=== PATIENT | female | born 1985 | race Caucasian/White ===

== ENCOUNTER 2019-12-28 16:38 | Observation (INO) ==
[2019-12-28] MEDS ORDERED: 0.9 % Sodium Chloride 1,000 ML IVC ONE (17:11)
[2019-12-28 17:53] LABS: Basophils # 0.1 K/mcL (0.0-0.2); Basophils % 1.5 %; Eosinophils # 0.2 K/mcL (0.0-0.6); Eosinophils % 2.5 %; Hematocrit 51.5 % (35.3-44.9); Hemoglobin 17.5 g/dL (11.5-15.4); Immature Granulocytes % 0.6 % (0-4); Lymphocytes # 1.7 K/mcL (0.6-4.6); Lymphocytes % 19.6 %; Mean Corpuscular Hemoglobin 30.4 pg (28.0-33.3); Mean Corpuscular Volume 89.4 fL (83.0-100.0); Mean Platelet Volume 11.6 fL (9.4-12.4); Monocytes # 1.2 K/mcL (0.0-1.3); Monocytes % 13.3 %; Neutrophils # 5.5 K/mcL (1.6-8.9); Platelet Count 303 K/mcL (140-400); Red Blood Count 5.76 M/mcL (3.82-4.97); Red Cell Distribution Width 14.1 % (11.5-14.5); Segmented Neutrophils % 62.5 %; White Blood Count 8.7 K/mcL (4.3-11.1)
[2019-12-28 17:55] LABS: Bilirubin,Urine Large (Negative); Blood,Urine Large (Negative); Clarity,Urine Cloudy (Clear); Color,Urine Orange (Yellow); Glucose,Urine (UA) Normal (Normal); Ketones,Urine Trace mg/dL (Negative); Leukocyte Esterase,Urine Large (Negative); Nitrite,Urine Positive (Negative); Protein,Urine 30 mg/dL (Neg-Trace); Specific Gravity,Urine 1.028 (1.010-1.025); Urobilinogen,Urine Normal (Normal)
[2019-12-28 17:58] LABS: Bacteria,Urine Many per hpf (None-Few); Hyaline Casts,Urine None Seen per lpf (None-Few); Squamous Epithelial Cell,Urine Many per lpf (None-Few); WBC,Urine TNTC per hpf (0-3)
[2019-12-28 18:05] LABS: INR 1.4
[2019-12-28 18:08] LABS: Activated Partial Thrombo Time 34.8 Seconds (26.0-36.0)
[2019-12-28 18:10] LABS: Prothrombin Time 15.9 Seconds (9.4-12.1)
[2019-12-28 18:20] LABS: RBC,Urine 0-3 per hpf (0-3)
[2019-12-28 18:28] LABS: Acetaminophen < 10 mcg/mL (10-20); Alanine Aminotransferase 2662 Units/L (7-52); Albumin 4.1 g/dL (3.5-5.7); Albumin/Globulin Ratio 1.3 (1.1-2.2); Alkaline Phosphatase 202 Units/L (34-104); Aspartate Amino Transferase 1485 Units/L (13-39); BUN/Creatinine Ratio 9 (6-26); Bilirubin,Direct 7.5 mg/dL (0.0-0.2); Bilirubin,Indirect 4.4 mg/dL (0.0-1.0); Bilirubin,Total 11.9 mg/dL (0.3-1.0); Blood Urea Nitrogen 7 mg/dL (6-20); Calcium 9.4 mg/dL (8.6-10.3); Carbon Dioxide 25 mEq/L (23-29); Chloride 100 mEq/L (98-107); Globulin 3.2 g/dL (2.4-3.5); Glucose 81 mg/dL (70-105); Lipase 49 Units/L (11-82); Osmolality,Calculated 271 (280-300); Potassium 3.6 mEq/L (3.5-5.1); Sodium 132 mEq/L (136-145); Total Protein 7.3 g/dL (6.4-8.9); eGFR For African Americans > 60 (> 60); eGFR For Non-African Americans > 60 (> 60)
[2019-12-28] MEDS ORDERED: cefTRIAXone 1,000 MG in Water for inj. (sterile) 10 ML IVP ONE (18:49)
[2019-12-28 19:01] LABS: Hepatitis A Antibody IgM Nonreactive (Nonreactive); Hepatitis C Virus Antibody Nonreactive (Nonreactive)
[2019-12-28 19:28] LABS: Hepatitis B Core IgM Reactive (Nonreactive); Hepatitis B Surface Antigen Reactive (Nonreactive)
[2019-12-28] MEDS ORDERED: Nicotine 7 MG PATCH.TD24 TD ONE (20:15)
[2019-12-28] MEDS ORDERED: Ibuprofen 800 MG TABLET PO ONE (21:50)
[2019-12-28 22:52] VITALS: BP 112/75
[2019-12-28] MEDS ORDERED: Naloxone 0.4 MG/ML INJ IVP PRN (23:22)
[2019-12-28] MEDS ORDERED: Ketorolac 15 MG/ML VIAL IVP PRN (23:39)
== END 2019-12-29 00:35 | disposition short-term general hospital (02) ==
LOC: 3ANU 16:38 → EMEROOARM 16:38 → 3ANU 22:32
PROVIDERS: ADMIT Family Medicine; ATTEND Family Medicine